=== PATIENT | female | born 1955 | race African-American/Black ===

== ENCOUNTER 2016-04-27 13:29 | Inpatient (IN) | payer OTHER ==
[2016-04-27 14:53] VITALS: BMI 45.8
--- NOTE | 2016-04-27 16:27 | HP ---
COWS - Scale Resting Pulse: 1= [place] 81-100 Sweatin=Flushed/Facial Moisture Restless Observation: 3= Extraneous Movement Pupil Size: 0= Normal to Room Light Bone or Joint Aches: 2= Severe Diffuse Aches Runny Nose/ Eye Tearin= Runny Nose/Eyes GI Upset > 30mins: 1= Stomach Cramp Tremor Observation: 2= Slight Tremor Visible Yawning Observation: 0= None Anxiety or Irritability: 2=Irritable/Anxious Goose Flesh Skin: 0=Smooth Skin COWS Score: 15 CIWA Score - CIWA Score Nausea/Vomitin-Mild Nausea/No Vomiting Muscle Tremors: 4-Moderate,w/Arms Extend Anxiety: 4-Mod. Anxious/Guarded Agitation: 4-Moderately Restless Paroxysmal Sweats: 1-Minimal Palms Moist Orientation: 1-Uncertain about Date Tacttile Disturbances: 0-None Auditory Disturbances: 0-None Visual Disturbances: 0-None Headache: 2-Mild CIWA-Ar Total Score: 17 Admission ROS S - HPI Chief Complaint: WITHDRAWAL SX Allergies/Adverse Reactions: Allergies Allergy/AdvReac Type Severity Reaction Status Date / Time uracil mustard Allergy Intermediate Hives Verified 04/27/16 15:45 atenolol Allergy Difficulty Verified 04/27/16 15:45 Breathing History of Present Illness: 61 YEARS OLD FEMALE WITH LONG HISTORY OF ALCOHOL OPIATE NICOTINE DEPENDENCE HAS HYPERTENSION ASTHMA CONSTIPATION S/P RIGHT LEG FX, AMBULATE WITH CANE X 20 YEARS , LONGEST SOBRIETY 14 MONTHS IS ADMITTED TO DETOX Exam Limitations: No Limitations - Ebola screening Have you traveled outside of the country in the last 21 days: No Have you had contact with anyone from an Ebola affected area: No Have you been sick,other than usual withdrawal symptoms: No Do you have a fever: No - Review of Systems Constitutional: Chills, Changes in sleep, Weakness (RIGHT LEG), Weight Stable EENT: reports: Cataracts (BOTH EYES), Dental Problems (FEW LEFT), Other ( READING EYE GLASSES) Respiratory: reports: Cough, SOB with Exertion Cardiac: reports: No Symptoms Reported GI: reports: Constipated, Poor Fluid Intake, Abdominal cramping : reports: No Symptoms Reported Musculoskeletal: reports: Joint Pain, Muscle Pain, Muscle Weakness (RIGHT LEG) Integumentary: reports: No Symptoms Reported Neuro: reports: Tremors Endocrine: reports: No Symptoms Reported Hematology: reports: No Symptoms Reported Psychiatric: reports: Judgement Intact, Depressed Other Systems: Reviewed and Negative Patient History - Patient Medical History Hx Anemia: No Hx Asthma: Yes Hx Chronic Obstructive Pulmonary Disease (COPD): No Hx Cancer: No Hx Cardiac Disorders: No Hx Congestive Heart Failure: No Hx Hypertension: Yes (on medication) Hx Hypercholesterolemia: No Hx Pacemaker: No HX Cerebrovascular Accident: No Hx Seizures: No Hx Dementia: No Hx Diabetes: No Hx Gastrointestinal Disorders: No Hx Liver Disease: No Hx Genitourinary Disorders: No Hx Sexually Transmitted Disorders: No Hx Renal Disease (ESRD): No Hx Thyroid Disease: No Hx Human Immunodeficiency Virus (HIV): No Hx Hepatitis C: No Hx Depression: Yes Hx Suicide Attempt: No Hx Bipolar Disorder: No Hx Schizophrenia: No - Patient Surgical History Past Surgical History: Yes Hx Neurologic Surgery: No Hx Cataract Extraction: No Hx Cardiac Surgery: No Hx Lung Surgery: No Hx Breast Surgery: No Hx Breast Biopsy: No Hx Abdominal Surgery: Yes (unmbilical hernia in 2009) Hx Appendectomy: No Hx Cholecystectomy: Yes (lap cholecystectomy in 2010) Hx Genitourinary Surgery: No Hx Section: No Hx Orthopedic Surgery: Yes (fx of right hip,leg and ankle) Hx Hysterectomy: No Other Surgical History: HERNIA 2010 Anesthesia Reaction: No - PPD History Previous Implant?: Yes Documented Results: Negative w/proof Implanted On Prior [facility] Admission?: Yes Date: 05/29/14 PPD to be Administered?: Yes - Reproductive History Patient is a Female of Child Bearing Age (11 -55 yrs old): No Patient : No - Smoking Cessation Smoking history: Current every day smoker Have you smoked in the past 12 months: Yes Aproximately how many cigarettes per day: 4 Cigars Per Day: 0 Hx Chewing Tobacco Use: No Initiated information on smoking cessation: Yes 'Breaking Loose' booklet given: 04/27/16 - Substance & Tx. History Hx Alcohol Use: Yes Hx Substance Use: Yes Substance Use Type: Alcohol, Heroin Hx Substance Use Treatment: Yes - Substances Abused Alcohol Route: Oral Frequency: Daily Amount used: Rum(1 pint)wine(1 box) Age of first use: 16 Date of Last Use: 04/27/16 Heroin Route: Inhalation Frequency: Daily Amount used: 4 bags Age of first use: 18 Date of Last Use: 04/27/16 Family Disease History - Family Disease History Family Disease History: Other: Father (alcohol,), Mother (htn,cva), Brother (alcohol,dsa), Sister (alcohol,dsa) Admission Physical Exam [facility] - Vital Signs Vital Signs: Vital Signs - 24 hr 04/27/16 14:51 Temperature 97.2 F L Pulse Rate 84 Respiratory 18 Rate Blood Pressure 142/83 - Physical General Appearance: Yes: Nourished, Appropriately Dressed, Alcohol on Breath, Tremorous, Irritable, Sweating, Anxious HEENTM: Yes: Hearing grossly Normal, Normal ENT Inspection, Normocephalic, Normal Voice Respiratory: Yes: Chest Non-Tender, Lungs Clear, Normal Breath Sounds, No Respiratory Distress, No Accessory Muscle Use Neck: Yes: Supple, Trachea in good position Breast: Yes: Breasts Symetrical Cardiology: Yes: Regular Rhythm, Regular Rate, S1, S2 Abdominal: Yes: Non Tender, Soft, Decreased BS Genitourinary: Yes: Within Normal Limits Back: Yes: Normal Inspection Musculoskeletal: Yes: Gait Steady (CANE), Muscle weakness (RIGHT LEG) Extremities: Yes: Non-Tender, Tremors, Swelling (HANDS AND ANKLES MILD) Neurological: Yes: Alert, Normal Response, Depressed Affect Integumentary: Yes: Warm, Moist Lymphatic: Yes: Within Normal Limits - Diagnostic (1) Essential hypertension Current Visit: Yes Status: Active (2) Gastroesophageal reflux disease Current Visit: Yes Status: Active (3) s/p lap cholecystectomy Current Visit: Yes Status: Resolved (4) s/p repair of umbilical hernia Current Visit: Yes Status: Resolved (5) Anxiety and depression Current Visit: Yes Status: Suspected (6) Asthma Current Visit: Yes Status: Acute Qualifiers: Asthma severity: mild intermittent Asthma complication type: with status asthmaticus Qualified Code(s): J45.22 - Mild intermittent asthma with status asthmaticus (7) Nicotine dependence Current Visit: Yes Status: Acute Qualifiers: Nicotine product type: cigarettes Substance use status: uncomplicated Qualified Code(s): F17.210 - Nicotine dependence, cigarettes, uncomplicated (8) Use of cane as ambulatory aid Current Visit: Yes Status: Acute (9) Alcohol dependence with uncomplicated withdrawal Current Visit: Yes Status: Acute (10) Opioid dependence with withdrawal Current Visit: Yes Status: Acute (11) Constipation by delayed colonic transit Current Visit: Yes Status: Acute Cleared for Admission [facility] - Detox or Rehab [facility] Level of Care: Medically Managed Detox Regimen/Protocol: Methadone/Librium [facility] Breath Alcohol Content Breath Alcohol Content: 0.024 Urine Pregancy Test - Result Urine Test Results: Negative- NO Line Present Urine Drug Screen - Results Drug Screen Negative: No Urine Drug Screen Results: OPI-Opiates
[2016-04-27] MEDS ORDERED: chlordiazePOXIDE HCL 25 MG CAPSULE PO ONE (16:33)
[2016-04-27] MEDS ORDERED: P-EPHED 60MG/TRIPROLIDI 2.5MG TABLET PO PRN (16:33)
[2016-04-27] MEDS ORDERED: LOPERAMIDE HCL 2 MG CAPSULE PO PRN (16:33)
[2016-04-27] MEDS ORDERED: MAGNESIUM HYDROX 2400MG/30ML ORAL SUSPENSION 30 ML CUP PO PRN (16:33)
[2016-04-27] MEDS ORDERED: ACETAMINOPHEN 325 MG TABLET (FP) PO PRN (16:33)
[2016-04-27] MEDS ORDERED: MENTHOL/PHENOL 1 EACH UD MM PRN (16:33)
[2016-04-27] MEDS ORDERED: NICOTINE POLACRILEX 2 MG GUM BC PRN (16:33)
[2016-04-27] MEDS ORDERED: chlordiazePOXIDE HCL 25 MG CAPSULE PO PRN (16:33)
[2016-04-27] MEDS ORDERED: IBUPROFEN 400 MG TABLET (FP) PO PRN (16:33)
[2016-04-27] MEDS ORDERED: MAG HYDROX/AL HYDROX/SIMETH 30 ML UNIT-DOSE CUP PO PRN (16:33)
[2016-04-27] MEDS ORDERED: diphenhydrAMINE HCL 50 MG CAPSULE PO PRN (16:33)
[2016-04-27] MEDS ORDERED: MAGNESIUM CITRATE 300 ML BOTTLE PO PRN (16:33)
[2016-04-27] MEDS ORDERED: guaiFENesin/D-METHORPHAN HB 10 ML UNIT-DOSE CUPS PO PRN (16:33)
[2016-04-27] MEDS ORDERED: METHADONE HCL 10 MG TABLET (FOR DETOX USE ONLY) PO ONE ×2 (16:33→23:00)
[2016-04-27] MEDS ORDERED: ALBUTEROL SO4 2.5/IPRATROPIUM 0.5 INH SOL 3 ML VIAL.NEB. NEB PRN (16:35)
[2016-04-27] MEDS ORDERED: ALBUTEROL SO4 6.7 GM HFA INHALER IH PRN (16:35)
[2016-04-27] MEDS: chlordiazePOXIDE HCL 25 MG CAPSULE PO SCH (22:39)
[2016-04-27] MEDS: THIAMINE HCL 100 MG TABLET (FP) PO SCH (22:39)
[2016-04-27] MEDS: RANITIDINE HCL 150 MG TABLET (FP) PO SCH (22:40)
[2016-04-27] MEDS: BUDESONIDE/FORMETEROL FUMARATE 80/4.5 mcg INHALER IH SCH (22:40)
[2016-04-28 00:51] LABS: URINE APPEARANCE CLEAR; URINE BILIRUBIN NEGATIVE (NEGATIVE); URINE BLOOD NEGATIVE (NEGATIVE); URINE COLOR LTYELLOW; URINE GLUCOSE (UA) NEGATIVE (NEGATIVE); URINE KETONE NEGATIVE (NEGATIVE); URINE LEUK ESTERASE NEGATIVE (NEGATIVE); URINE NITRITE NEGATIVE (NEGATIVE); URINE PROTEIN NEGATIVE (NEGATIVE); URINE UROBILINOGEN NEGATIVE E.U./dl (0.2-1.0)
[2016-04-28] MEDS: chlordiazePOXIDE HCL 25 MG CAPSULE PO SCH ×4 (06:09→22:26)
--- NOTE | 2016-04-28 07:40 | CONSULT ---
[facility] Psychiatric Consult - Data Date of interview: 04/28/16 Admission source: [facility] Identifying data: This is 61 years vold female ambulatine with cane, with psychiatric hospitalization history, intoxicated with: Alcohol, Opioids, Xanax and Nicotine Substance Abuse History: - Smoking Cessation. Smoking history: Current every day smoker. Have you smoked in the past 12 months: Yes. Aproximately how many cigarettes per day: 4. Cigars Per Day: 0. Hx Chewing Tobacco Use: No. Initiated information on smoking cessation: Yes. 'Breaking Loose' booklet given : 04/27/16. - Substance & Tx. History. Hx Alcohol Use: Yes. Hx Substance Use : Yes. Substance Use Type: Alcohol, Heroin. Hx Substance Use Treatment: Yes. - Substances Abused. Alcohol. Route: Oral. Frequency: Daily. Amount used : Rum(1 pint)wine(1 box). Age of first use: 16. Date of Last Use: 04/27/16. * * Heroin. Route: Inhalation. Frequency: Daily. Amount used: 4 bags. Age of first use: 18. Date of Last Use: 04/27/16 Medical History: HTN, GERD, Asthma, MMTP 20MG /day Psychiatric History: Patient reports history of depression and anxiety, reports most recent psychiatric admission at [facility] on 2012 due to suicidal thinking, denies sucidal attempt history, reports no medications taking prior to admission. Physical/Sexual Abuse/Trauma History: Unclear Additional Comment: Observation. Detox Unit Care Protocol Mental Status Exam - Mental Status Exam Alert and Oriented to: Person Cognitive Function: Fair Patient Appearance: Unkempt Mood: Sad Affect: Flat Patient Behavior: Sedated Speech Pattern: Appropriate Voice Loudness: Mildly Soft/Quiet Thought Process: Circumstantial, Goal Oriented Thought Disorder: Being Controlled Hallucinations: Denies Suicidal Ideation: Denies Homicidal Ideation: Denies Insight/Judgement: Fair Sleep: Difficulty falling asleep Appetite: Weight gain Muscle strength/Tone: Mild Hypotonicity Gait/Station: Shuffling Additional Comments: Observation. Detox Unit Care Protocol Psychiatric Findings - Problem List ([place] 1, 2,3) (1) Alcohol dependence with uncomplicated withdrawal Current Visit: Yes Status: Acute (2) Nicotine dependence Current Visit: Yes Status: Acute Qualifiers: Nicotine product type: cigarettes Substance use status: uncomplicated Qualified Code(s): F17.210 - Nicotine dependence, cigarettes, uncomplicated (3) Opioid dependence with withdrawal Current Visit: Yes Status: Acute (4) Anxiety and depression Current Visit: Yes Status: Suspected (5) Alcohol dependence Current Visit: No Status: Active (6) Cocaine dependence Current Visit: No Status: Active (7) Opioid dependence Current Visit: No Status: Active (8) Sedative dependence Current Visit: No Status: Active (9) Methadone maintenance therapy patient Current Visit: No Status: Acute (10) Mood disorder Current Visit: No Status: Acute (11) Drug-induced mood disorder Current Visit: Yes Status: Acute - Initial Treatment Plan Initial Treatment Plan: Observation. Detox Unit Care Protocol
[2016-04-28] MEDS ORDERED: METHADONE HCL 10 MG TABLET (FOR DETOX USE ONLY) PO SCH (10:00)
[2016-04-28 10:36] LABS: MCHC 32.9 g/dl (32.0-36.0); MEAN CELL VOLUME 94.4 fl (80-96); MEAN PLT VOLUME 9.1 fl (7.5-11.1); PLATELET COUNT 277 K/MM3 (134-434); WHITE BLOOD COUNT 9.2 K/mm3 (4.0-10.0)
[2016-04-28] MEDS: amLODIPine BESYLATE 10 MG TABLET (FP) PO SCH (10:44)
[2016-04-28] MEDS: PRENATAL VITAMINS W/ FOLIC ACID TABLET (FP) PO SCH (10:44)
[2016-04-28] MEDS: RAMIPRIL 5 MG CAPSULE (FP) PO SCH (10:44)
[2016-04-28] MEDS: RANITIDINE HCL 150 MG TABLET (FP) PO SCH ×2 (10:44→22:26)
[2016-04-28] MEDS: BUDESONIDE/FORMETEROL FUMARATE 80/4.5 mcg INHALER IH SCH ×2 (10:45→22:25)
[2016-04-28] MEDS: NICOTINE 14 MG/24 HOURS TOPICAL PATCH TD SCH (10:52)
[2016-04-28 11:07] LABS: ALBUMIN 3.4 g/dl (3.4-5.0); ALK PHOS 76 U/L (45-117); ANION GAP 11 (8-16); BILIRUBIN,TOTAL 0.5 mg/dL (0.2-1.0); CALCIUM 8.7 mg/dL (8.5-10.1); CO2 32 mmol/L (21-32); CREATININE 0.8 mg/dL (0.55-1.02); GLUCOSE,RANDOM 109 mg/dL (74-106); SGOT/AST 11 U/L (15-37); SGPT/ALT 15 U/L (12-78)
--- NOTE | 2016-04-28 11:20 | PN ---
[facility] CIWA - CIWA Score Nausea/Vomitin-No Nausea/No Vomiting Muscle Tremors: 4-Moderate,w/Arms Extend Anxiety: 3 Agitation: 3 Paroxysmal Sweats: 3 Orientation: 0-Oriented Tacttile Disturbances: 0-None Auditory Disturbances: 0-None Visual Disturbances: 0-None Headache: 1-Very Mild CIWA-Ar Total Score: 14 [facility] COWS - Scale Resting Pulse: 1= [place] 81-100 Sweatin=Flushed/Facial Moisture Restless Observation: 1= Difficult to Sit Still Pupil Size: 0= Normal to Room Light Bone or Joint Aches: 2= Severe Diffuse Aches Runny Nose/ Eye Tearin= Runny Nose/Eyes GI Upset > 30mins: 0= None Tremor Observation of Outstretched Hands: 2= Slight Tremor Visible Yawning Observation: 2= >3x During Session Anxiety or Irritability: 2=Irritable/Anxious Goose Flesh Skin: 0=Smooth Skin COWS Score: 14 [facility] Progress Note (SOAP) Subjective: chronic body aches sweats shakes interrupted sleep irritable agitation Objective: 04/28/16 11:20 Vital Signs Temperature 98.1 F 04/28/16 10:09 Pulse Rate 93 H 04/28/16 10:09 Respiratory Rate 16 04/28/16 10:09 Blood Pressure 111/53 04/28/16 10:09 O2 Sat by Pulse Oximetry (%) Laboratory Tests 04/27/16 04/28/16 04/28/16 21:22 06:00 06:00 WBC 9.2 D RBC 4.09 Hgb 12.7 Hct 38.6 MCV 94.4 MCHC 32.9 RDW 15.0 Plt Count 277 MPV 9.1 Sodium 140 Potassium 3.8 Chloride 97 L Carbon Dioxide 32 Anion Gap 11 BUN 13 Creatinine 0.8 D Creat Clearance w eGFR > 60 Random Glucose 109 H D Calcium 8.7 Total Bilirubin 0.5 D AST 11 L ALT 15 D Alkaline Phosphatase 76 Total Protein 7.0 Albumin 3.4 Urine Color Ltyellow Urine Appearance Clear Urine pH 6.0 Ur Specific [place] 1.012 Urine Protein Negative Urine Glucose (UA) Negative Urine Ketones Negative Urine Blood Negative Urine Nitrite Negative Urine Bilirubin Negative Urine Urobilinogen Negative Ur Leukocyte Esterase Negative awake/alert ambulating no acute distress Assessment: 04/28/16 11:20 withdrawal sx Plan: continue detox increase fluids motrin 600mg prn lidocaine patch prn flexiril prn
--- NOTE | 2016-04-28 11:51 | EKG ---
Test Reason : Blood Pressure : / mmHG Vent. Rate : 092 BPM Atrial Rate : 092 BPM P-R Int : 170 ms QRS Dur : 084 ms QT Int : 406 ms P-R-T Axes : 068 -19 072 degrees QTc Int : 502 ms NORMAL SINUS RHYTHM NONSPECIFIC T WAVE ABNORMALITY PROLONGED QT ABNORMAL ECG NO PREVIOUS ECGS AVAILABLE Confirmed by ZAID GENAO MD ([id number]) on 04/28/2016 11:50:34 AM Referred By: Confirmed By:ZAID GENAO MD
[2016-04-28 12:26] LABS: HIV 1 & 2 AB NEGATIVE; HIV 1 AGp24 NEGATIVE
[2016-04-28] MEDS: CYCLOBENZAPRINE HCL 10 MG TABLET (FP) PO PRN ×2 (15:08→22:26)
[2016-04-28] MEDS: THIAMINE HCL 100 MG TABLET (FP) PO SCH (22:26)
[2016-04-29] MEDS: chlordiazePOXIDE HCL 25 MG CAPSULE PO SCH ×3 (05:12→17:20)
[2016-04-29] MEDS: TRIMETHOBENZAMIDE HCL 200MG/2ML INJ IM PRN ×2 (07:14→15:10)
--- NOTE | 2016-04-29 10:42 | PN ---
[facility] CIWA - CIWA Score Nausea/Vomitin-Int. Nausea w/Dry Heave Muscle Tremors: 3 Anxiety: 3 Agitation: 3 Paroxysmal Sweats: 2 Orientation: 0-Oriented Tacttile Disturbances: 2-Mild Itch/Numbness/Burn Auditory Disturbances: 0-None Visual Disturbances: 0-None Headache: 0-None Present CIWA-Ar Total Score: 17 [facility] COWS - Scale Resting Pulse: 1= [place] 81-100 Sweatin= Chills/Flushing Restless Observation: 1= Difficult to Sit Still Pupil Size: 1= Pupils >than Normal Bone or Joint Aches: 2= Severe Diffuse Aches Runny Nose/ Eye Tearin= Nasal Congestion GI Upset > 30mins: 1= Stomach Cramp Tremor Observation of Outstretched Hands: 2= Slight Tremor Visible Yawning Observation: 0= None Anxiety or Irritability: 2=Irritable/Anxious Goose Flesh Skin: 0=Smooth Skin COWS Score: 12 [facility] Progress Note (SOAP) Subjective: interrupted sleep cp, abd. pain, nausea , feels sick Objective: 04/29/16 10:39 Vital Signs Temperature 97.9 F 04/29/16 10:15 Pulse Rate 73 04/29/16 10:15 Respiratory Rate 18 04/29/16 10:15 Blood Pressure 158/81 04/29/16 10:15 O2 Sat by Pulse Oximetry (%) Laboratory Tests 04/27/16 04/27/16 04/27/16 06:00 06:00 21:22 WBC RBC Hgb Hct MCV MCHC RDW Plt Count MPV Sodium Potassium Chloride Carbon Dioxide Anion Gap BUN Creatinine Creat Clearance w eGFR Random Glucose Calcium Total Bilirubin AST ALT Alkaline Phosphatase Total Protein Albumin Urine Color Ltyellow Urine Appearance Clear Urine pH 6.0 Ur Specific [place] 1.012 Urine Protein Negative Urine Glucose (UA) Negative Urine Ketones Negative Urine Blood Negative Urine Nitrite Negative Urine Bilirubin Negative Urine Urobilinogen Negative Ur Leukocyte Esterase Negative RPR Titer Hepatitis C Antibody 0.8 HIV 1&2 Antibody Screen Negative HIV P24 Antigen Negative 04/28/16 04/28/16 04/28/16 06:00 06:00 06:00 WBC 9.2 D RBC 4.09 Hgb 12.7 Hct 38.6 MCV 94.4 MCHC 32.9 RDW 15.0 Plt Count 277 MPV 9.1 Sodium 140 Potassium 3.8 Chloride 97 L Carbon Dioxide 32 Anion Gap 11 BUN 13 Creatinine 0.8 D Creat Clearance w eGFR > 60 Random Glucose 109 H D Calcium 8.7 Total Bilirubin 0.5 D AST 11 L ALT 15 D Alkaline Phosphatase 76 Total Protein 7.0 Albumin 3.4 Urine Color Urine Appearance Urine pH Ur Specific [place] Urine Protein Urine Glucose (UA) Urine Ketones Urine Blood Urine Nitrite Urine Bilirubin Urine Urobilinogen Ur Leukocyte Esterase RPR Titer Nonreactive Hepatitis C Antibody HIV 1&2 Antibody Screen HIV P24 Antigen pt aox3 lying in bed nad 04/29/16 10:40 lungs clear toa/p cor rrr, w/o m ,r or gallop chest + pt tenderness rt sternal border abd obese soft mild tenderess llq , BS++, no rebound 04/29/16 10:43 ekg nsr 72/m nad non sp st/t changes , qt prolonged 04/29/16 10:44 Assessment: 04/29/16 10:42 withdrawl sx's 04/29/16 10:43 Plan: cont. detox increase fluids amylase , lipase [place]
[2016-04-29] MEDS: BUDESONIDE/FORMETEROL FUMARATE 80/4.5 mcg INHALER IH SCH ×2 (10:51→22:33)
[2016-04-29] MEDS: RANITIDINE HCL 150 MG TABLET (FP) PO SCH ×2 (10:51→22:33)
[2016-04-29] MEDS: PRENATAL VITAMINS W/ FOLIC ACID TABLET (FP) PO SCH (10:51)
[2016-04-29] MEDS: METHADONE HCL 5 MG TABLET (FOR DETOX USE ONLY) PO SCH (10:51)
[2016-04-29] MEDS: RAMIPRIL 5 MG CAPSULE (FP) PO SCH (10:51)
[2016-04-29] MEDS: amLODIPine BESYLATE 10 MG TABLET (FP) PO SCH (10:52)
[2016-04-29] MEDS: NICOTINE 14 MG/24 HOURS TOPICAL PATCH TD SCH (11:00)
[2016-04-29 14:11] LABS: AMYLASE 47 U/L (25-115)
--- NOTE | 2016-04-29 17:05 | EKG ---
Test Reason : Blood Pressure : / mmHG Vent. Rate : 073 BPM Atrial Rate : 073 BPM P-R Int : 202 ms QRS Dur : 080 ms QT Int : 370 ms P-R-T Axes : 067 -07 -07 degrees QTc Int : 407 ms NORMAL SINUS RHYTHM NONSPECIFIC T WAVE ABNORMALITY ABNORMAL ECG WHEN COMPARED WITH ECG OF 27-APR-2016 18:39, NONSPECIFIC T WAVE ABNORMALITY, WORSE IN ANTERIOR LEADS QT HAS SHORTENED Confirmed by JEWELL KANG, GANGA ([id number]) on 04/29/2016 5:04:50 PM Referred By: Confirmed By:GANGA CORCORAN MD
[2016-04-29] MEDS: THIAMINE HCL 100 MG TABLET (FP) PO SCH (22:33)
[2016-04-29] MEDS: chlordiazePOXIDE 5 MG CAPSULE PO SCH (22:34)
[2016-04-29] MEDS: DOCUSATE SODIUM 100 MG CAPSULE (FP) PO PRN (22:34)
[2016-04-29] MEDS: IBUPROFEN 600 MG TABLET (FP) PO PRN (22:34)
[2016-04-29] MEDS: CYCLOBENZAPRINE HCL 10 MG TABLET (FP) PO PRN (22:34)
[2016-04-30] MEDS: chlordiazePOXIDE 5 MG CAPSULE PO SCH ×3 (06:08→17:22)
[2016-04-30] MEDS: PRENATAL VITAMINS W/ FOLIC ACID TABLET (FP) PO SCH (11:13)
[2016-04-30] MEDS: amLODIPine BESYLATE 10 MG TABLET (FP) PO SCH (11:13)
[2016-04-30] MEDS: BUDESONIDE/FORMETEROL FUMARATE 80/4.5 mcg INHALER IH SCH ×2 (11:13→22:35)
[2016-04-30] MEDS: METHADONE HCL 5 MG TABLET (FOR DETOX USE ONLY) PO SCH (11:13)
[2016-04-30] MEDS: RANITIDINE HCL 150 MG TABLET (FP) PO SCH ×2 (11:14→22:35)
[2016-04-30] MEDS: RAMIPRIL 5 MG CAPSULE (FP) PO SCH (11:14)
[2016-04-30] MEDS: NICOTINE 14 MG/24 HOURS TOPICAL PATCH TD SCH (11:16)
--- NOTE | 2016-04-30 12:19 | PN ---
[facility] Progress Note (SOAP) Subjective: body aches sweats interrupted sleep irritable Objective: 04/30/16 12:18 Vital Signs Temperature 98.4 F 04/30/16 10:00 Pulse Rate 74 04/30/16 10:00 Respiratory Rate 18 04/30/16 10:00 Blood Pressure 130/75 04/30/16 10:00 O2 Sat by Pulse Oximetry (%) Laboratory Tests 04/27/16 04/27/16 04/27/16 06:00 06:00 21:22 WBC RBC Hgb Hct MCV MCHC RDW Plt Count MPV Sodium Potassium Chloride Carbon Dioxide Anion Gap BUN Creatinine Creat Clearance w eGFR Random Glucose Calcium Total Bilirubin AST ALT Alkaline Phosphatase Total Protein Albumin Total Amylase Lipase Urine Color Ltyellow Urine Appearance Clear Urine pH 6.0 Ur Specific [place] 1.012 Urine Protein Negative Urine Glucose (UA) Negative Urine Ketones Negative Urine Blood Negative Urine Nitrite Negative Urine Bilirubin Negative Urine Urobilinogen Negative Ur Leukocyte Esterase Negative RPR Titer Hepatitis C Antibody 0.8 HIV 1&2 Antibody Screen Negative HIV P24 Antigen Negative 04/28/16 04/28/16 04/28/16 06:00 06:00 06:00 WBC 9.2 D RBC 4.09 Hgb 12.7 Hct 38.6 MCV 94.4 MCHC 32.9 RDW 15.0 Plt Count 277 MPV 9.1 Sodium 140 Potassium 3.8 Chloride 97 L Carbon Dioxide 32 Anion Gap 11 BUN 13 Creatinine 0.8 D Creat Clearance w eGFR > 60 Random Glucose 109 H D Calcium 8.7 Total Bilirubin 0.5 D AST 11 L ALT 15 D Alkaline Phosphatase 76 Total Protein 7.0 Albumin 3.4 Total Amylase Lipase Urine Color Urine Appearance Urine pH Ur Specific [place] Urine Protein Urine Glucose (UA) Urine Ketones Urine Blood Urine Nitrite Urine Bilirubin Urine Urobilinogen Ur Leukocyte Esterase RPR Titer Nonreactive Hepatitis C Antibody HIV 1&2 Antibody Screen HIV P24 Antigen 04/29/16 12:15 WBC RBC Hgb Hct MCV MCHC RDW Plt Count MPV Sodium Potassium Chloride Carbon Dioxide Anion Gap BUN Creatinine Creat Clearance w eGFR Random Glucose Calcium Total Bilirubin AST ALT Alkaline Phosphatase Total Protein Albumin Total Amylase 47 Lipase 52 L Urine Color Urine Appearance Urine pH Ur Specific [place] Urine Protein Urine Glucose (UA) Urine Ketones Urine Blood Urine Nitrite Urine Bilirubin Urine Urobilinogen Ur Leukocyte Esterase RPR Titer Hepatitis C Antibody HIV 1&2 Antibody Screen HIV P24 Antigen awake/alert ambulating no acute distress Assessment: 04/30/16 12:19 withdrawal sx Plan: continue detox increase fluids
[2016-04-30] MEDS: CYCLOBENZAPRINE HCL 10 MG TABLET (FP) PO PRN (22:34)
[2016-04-30] MEDS: DOCUSATE SODIUM 100 MG CAPSULE (FP) PO PRN (22:34)
[2016-04-30] MEDS: chlordiazePOXIDE HCL 10 MG CAPSULE PO SCH (22:34)
[2016-04-30] MEDS: THIAMINE HCL 100 MG TABLET (FP) PO SCH (22:35)
[2016-04-30] MEDS: IBUPROFEN 600 MG TABLET (FP) PO PRN (22:37)
[2016-05-01] MEDS: chlordiazePOXIDE HCL 10 MG CAPSULE PO SCH ×2 (06:27→12:09)
[2016-05-01] MEDS: IBUPROFEN 600 MG TABLET (FP) PO PRN (06:27)
[2016-05-01] MEDS: CYCLOBENZAPRINE HCL 10 MG TABLET (FP) PO PRN (06:27)
[2016-05-01] MEDS ORDERED: METHADONE HCL 10 MG TABLET (FOR DETOX USE ONLY) PO SCH (10:00)
[2016-05-01 10:08] VITALS: BP 107/55; PULSE 81; TEMP 98.2
--- NOTE | 2016-05-01 11:57 | PN ---
[facility] Progress Note (SOAP) Subjective: no complaints, wishes to leave today after medication Objective: 05/01/16 11:56 Vital Signs - 8 hr 05/01/16 05/01/16 06:36 10:08 Temperature 97.5 F L 98.2 F Pulse Rate 65 81 Respiratory 16 16 Rate Blood Pressure 131/70 107/55 Laboratory Tests 04/27/16 04/27/16 04/27/16 06:00 06:00 21:22 WBC RBC Hgb Hct MCV MCHC RDW Plt Count MPV Sodium Potassium Chloride Carbon Dioxide Anion Gap BUN Creatinine Creat Clearance w eGFR Random Glucose Calcium Total Bilirubin AST ALT Alkaline Phosphatase Total Protein Albumin Total Amylase Lipase Urine Color Ltyellow Urine Appearance Clear Urine pH 6.0 Ur Specific [place] 1.012 Urine Protein Negative Urine Glucose (UA) Negative Urine Ketones Negative Urine Blood Negative Urine Nitrite Negative Urine Bilirubin Negative Urine Urobilinogen Negative Ur Leukocyte Esterase Negative RPR Titer Hepatitis C Antibody 0.8 HIV 1&2 Antibody Screen Negative HIV P24 Antigen Negative 04/28/16 04/28/16 04/28/16 06:00 06:00 06:00 WBC 9.2 D RBC 4.09 Hgb 12.7 Hct 38.6 MCV 94.4 MCHC 32.9 RDW 15.0 Plt Count 277 MPV 9.1 Sodium 140 Potassium 3.8 Chloride 97 L Carbon Dioxide 32 Anion Gap 11 BUN 13 Creatinine 0.8 D Creat Clearance w eGFR > 60 Random Glucose 109 H D Calcium 8.7 Total Bilirubin 0.5 D AST 11 L ALT 15 D Alkaline Phosphatase 76 Total Protein 7.0 Albumin 3.4 Total Amylase Lipase Urine Color Urine Appearance Urine pH Ur Specific [place] Urine Protein Urine Glucose (UA) Urine Ketones Urine Blood Urine Nitrite Urine Bilirubin Urine Urobilinogen Ur Leukocyte Esterase RPR Titer Nonreactive Hepatitis C Antibody HIV 1&2 Antibody Screen HIV P24 Antigen 04/29/16 12:15 WBC RBC Hgb Hct MCV MCHC RDW Plt Count MPV Sodium Potassium Chloride Carbon Dioxide Anion Gap BUN Creatinine Creat Clearance w eGFR Random Glucose Calcium Total Bilirubin AST ALT Alkaline Phosphatase Total Protein Albumin Total Amylase 47 Lipase 52 L Urine Color Urine Appearance Urine pH Ur Specific [place] Urine Protein Urine Glucose (UA) Urine Ketones Urine Blood Urine Nitrite Urine Bilirubin Urine Urobilinogen Ur Leukocyte Esterase RPR Titer Hepatitis C Antibody HIV 1&2 Antibody Screen HIV P24 Antigen Assessment: 05/01/16 11:57 medically stable Plan: asymptomatic, wishes to leave, regular discharge today after medications
--- NOTE | 2016-05-01 12:01 | DS ---
[facility] Detox Discharge Summary Admission Date: 04/27/16 Discharge Date: 05/01/16 - History Present History: Alcohol Dependence, Opioid Dependence Pertinent Past History: HTN, asthma - Physical Exam Results Vital Signs: Vital Signs Temperature 98.2 F 05/01/16 10:08 Pulse Rate 81 05/01/16 10:08 Respiratory Rate 16 05/01/16 10:08 Blood Pressure 107/55 05/01/16 10:08 O2 Sat by Pulse Oximetry (%) Pertinent Admission Physical Exam Findings: withdrawal sx - Treatment Hospital Course: Detox Protocol Followed, Detoxed Safely, Responded well, Discharged Condition Good, Rehab Referral Accepted Patient has Accepted a Rehab Referral to: Yes - Medication Discharge Medications: Ambulatory Orders Salmeterol/Fluticasone [Advair 250Mcg/50Mcg -] 1 each IH BID #1 disk.w.dev NS Albuterol Sulfate Inhaler - [Ventolin HFA Inhaler -] 2 inh PO Q4H PRN #2 inh Amlodipine Besylate [Norvasc -] 10 mg PO DAILY #30 tablet 06/01/14 Ramipril [Altace] 5 mg PO BID #60 capsule 06/01/14 Pantoprazole Sodium [Protonix] 40 mg PO DAILY 04/27/16 - Diagnosis (1) Essential hypertension Current Visit: Yes Status: Chronic (2) Gastroesophageal reflux disease Current Visit: Yes Status: Chronic (3) Alcohol dependence with uncomplicated withdrawal Current Visit: Yes Status: Chronic (4) Asthma Current Visit: Yes Status: Chronic Qualifiers: Asthma severity: mild intermittent Asthma complication type: with status asthmaticus Qualified Code(s): J45.22 - Mild intermittent asthma with status asthmaticus (5) Constipation by delayed colonic transit Current Visit: Yes Status: Acute (6) Drug-induced mood disorder Current Visit: Yes Status: Acute (7) Nicotine dependence Current Visit: Yes Status: Chronic Qualifiers: Nicotine product type: cigarettes Substance use status: uncomplicated Qualified Code(s): F17.210 - Nicotine dependence, cigarettes, uncomplicated (8) Opioid dependence with withdrawal Current Visit: Yes Status: Chronic (9) Use of cane as ambulatory aid Current Visit: Yes Status: Chronic (10) s/p lap cholecystectomy Current Visit: Yes Status: Resolved (11) s/p repair of umbilical hernia Current Visit: Yes Status: Resolved (12) Alcohol dependence Current Visit: No Status: Active (13) Cocaine dependence Current Visit: Yes Status: Active (14) Opioid dependence Current Visit: Yes Status: Chronic (15) Sedative dependence Current Visit: Yes Status: Active (16) syncope alcohol related Current Visit: No Status: Active (17) Insomnia Current Visit: No Status: Acute (18) Mood disorder Current Visit: No Status: Acute - AMA Did Patient Leave Against Medical Advice: No
[2016-05-01] MEDS: RAMIPRIL 5 MG CAPSULE (FP) PO SCH (12:08)
[2016-05-01] MEDS: PRENATAL VITAMINS W/ FOLIC ACID TABLET (FP) PO SCH (12:09)
[2016-05-01] MEDS: BUDESONIDE/FORMETEROL FUMARATE 80/4.5 mcg INHALER IH SCH (12:09)
[2016-05-01] MEDS: amLODIPine BESYLATE 10 MG TABLET (FP) PO SCH (12:09)
[2016-05-01] MEDS: RANITIDINE HCL 150 MG TABLET (FP) PO SCH (12:10)
[2016-05-01] MEDS: NICOTINE 14 MG/24 HOURS TOPICAL PATCH TD SCH (12:10)
[2016-05-02] MEDS ORDERED: METHADONE HCL 5 MG TABLET (FOR DETOX USE ONLY) PO SCH (06:00)
== END 2016-05-01 13:40 | disposition left against medical advice (07) | DRG 894 ==
LOC: YASAS 13:29 → Y6N 17:15
PROVIDERS: ADMIT Internal Medicine Addiction Medicine; ATTEND Internal Medicine Addiction Medicine
PROC: HZ2ZZZZ Detoxification Services for Substance Abuse Treatment (ICD-10-PCS; principal; 2016-04-27)
DX: F19.230 Other psychoactive substance dependence with withdrawal, uncomplicated (principal); Z68.42 Body mass index [BMI] 45.0-49.9, adult; J45.22 Mild intermittent asthma with status asthmaticus; F11.23 Opioid dependence with withdrawal; F10.230 Alcohol dependence with withdrawal, uncomplicated; F17.210 Nicotine dependence, cigarettes, uncomplicated; F19.24 Other psychoactive substance dependence with psychoactive substance-induced mood disorder; F39 Unspecified mood [affective] disorder; F41.8 Other specified anxiety disorders; I10 Essential (primary) hypertension; K21.9 Gastro-esophageal reflux disease without esophagitis; E66.9 Obesity, unspecified; K59.01 Slow transit constipation; R26.2 Difficulty in walking, not elsewhere classified; G47.00 Insomnia, unspecified; Z90.49 Acquired absence of other specified parts of digestive tract; Z86.79 Personal history of other diseases of the circulatory system
CPT/HCPCS: 36415; 80053; 81003; 82150; 83690; 85027; 86593; 86803; 87389; 93005; 93010